=== PATIENT | female | born 1935 | race Asian ===

== ENCOUNTER 2024-11-23 08:50 | Inpatient (IN) | payer OTHER ==
[2024-11-23 09:11] VITALS: BMI 24.7
[2024-11-23 10:41] LABS: ABSOLUTE IMMATURE GRANULOCYTES 0.04 x10^3/uL (0.0-0.031); BASOPHILS # 0.06 x10^3/uL (0.01-0.08); EOSINOPHILS # 0.11 x10^3/uL (0.04-0.36); HEMATOCRIT 35.5 % (34.1-44.9); HEMOGLOBIN 11.5 g/dL (11.2-15.7); MCHC 32.4 g/dl (32.2-35.5); MEAN CELL VOLUME 94.4 fl (79.4-94.8); MEAN PLT VOLUME 11.5 fl (9.4-12.3); MONOCYTE # 0.89 x10^3/uL (0.24-0.86); PLATELET COUNT # 206 x10^3/uL (182-369); RDW 13.5 % (12.5-17.0)
[2024-11-23 10:52] LABS: INR 1.16 (0.83-1.09); PROTHROMBIN TIME (PATIENT) 12.6 SEC (9.7-13.0)
[2024-11-23 10:55] LABS: ACTIVATED PTT 30.1 SECONDS (25.2-36.5)
[2024-11-23 11:07] LABS: POTASSIUM 3.5 mmol/L (3.5-5.1)
[2024-11-23 11:09] LABS: ALBUMIN 3.1 g/dl (3.4-5.0); BLOOD UREA NITROGEN 19.9 mg/dL (7-18); CALCIUM 8.8 mg/dL (8.5-10.1)
[2024-11-23 11:14] LABS: BILIRUBIN,TOTAL 0.7 mg/dL (0.2-1); TOT PROT 6.2 g/dl (6.4-8.2)
[2024-11-23 11:41] LABS: POTASSIUM 3.5 mmol/L (3.5-5.1)
[2024-11-23 11:42] LABS: CALCIUM 8.7 mg/dL (8.5-10.1)
[2024-11-23 11:43] LABS: EPI CELLS 11 /uL (0-25.1); HYALINE CASTS 1 /uL (0-3.1); URINE APPEARANCE CLEAR; URINE BACTERIA 36 /uL (0-1359); URINE BILIRUBIN NEGATIVE (NEGATIVE); URINE COLOR DK YELLOW; URINE GLUCOSE (UA) NEGATIVE (NEGATIVE); URINE KETONE TRACE (NEGATIVE); URINE LEUK ESTERASE TRACE (NEGATIVE); URINE NITRITE NEGATIVE (NEGATIVE); URINE PROTEIN 1+ (NEGATIVE); URINE RBC 76 /uL (0-23.9); URINE UROBILINOGEN 0.2 mg/dL (0.2-1.0); URINE WBC 26 /uL (0-25.8)
[2024-11-23 11:43] LABS: BLOOD UREA NITROGEN 19.2 mg/dL (7-18)
[2024-11-23 11:48] LABS: BILIRUBIN,TOTAL 0.8 mg/dL (0.2-1); TOT PROT 5.9 g/dl (6.4-8.2)
[2024-11-23] MEDS ORDERED: CEFTRIAXONE 1 G/50 ML PREMIX 50 ML IVPB ONE (14:11)
[2024-11-23] MEDS: CEFTRIAXONE 1,000 MG in DEXTROSE 5%-WATER - 50 ML IVPB ONE (14:45)
[2024-11-24 08:45] LABS: HEMOGLOBIN 10.9 g/dL (11.2-15.7); MEAN CELL VOLUME 93.5 fl (79.4-94.8); PLATELET COUNT # 197 x10^3/uL (182-369); RDW 13.7 % (12.5-17.0)
[2024-11-24] MEDS: CEFTRIAXONE 1 G/50 ML PREMIX 50 ML IVPB SCH (10:06)
[2024-11-24] MEDS: amLODIPine BESYLATE 5 MG TABLET (FP) PO SCH (10:07)
[2024-11-24 12:01] LABS: POTASSIUM 3.3 mmol/L (3.5-5.1)
[2024-11-24 12:07] LABS: CALCIUM 8.1 mg/dL (8.5-10.1)
[2024-11-24 12:08] LABS: ALBUMIN 2.8 g/dl (3.4-5.0); BLOOD UREA NITROGEN 14.4 mg/dL (7-18)
[2024-11-24 12:11] LABS: CREATININE 0.8 mg/dL (0.55-1.3)
[2024-11-24 12:12] LABS: BILIRUBIN,TOTAL 0.5 mg/dL (0.2-1); TOT PROT 5.5 g/dl (6.4-8.2)
[2024-11-25 09:50] LABS: ABSOLUTE IMMATURE GRANULOCYTES 0.02 x10^3/uL (0.0-0.031); BASOPHILS # 0.06 x10^3/uL (0.01-0.08); EOSINOPHIL % 3.8 % (0.7-5.8); EOSINOPHILS # 0.32 x10^3/uL (0.04-0.36); HEMATOCRIT 33.4 % (34.1-44.9); HEMOGLOBIN 11.1 g/dL (11.2-15.7); MCHC 33.2 g/dl (32.2-35.5); MEAN CELL VOLUME 94.1 fl (79.4-94.8); MEAN PLT VOLUME 11.3 fl (9.4-12.3); MONOCYTE % 7.1 % (4.7-12.5); PLATELET COUNT # 213 x10^3/uL (182-369); RDW 13.4 % (12.5-17.0)
[2024-11-25 10:14] LABS: POTASSIUM 3.3 mmol/L (3.5-5.1)
[2024-11-25 10:17] VITALS: PULSE 70
[2024-11-25 10:30] LABS: CALCIUM 8.2 mg/dL (8.5-10.1); MAGNESIUM 2.2 mg/dL (1.8-2.4)
[2024-11-25 10:33] LABS: CREATININE 0.8 mg/dL (0.55-1.3)
[2024-11-25 10:34] LABS: PHOSPHOROUS 2.8 mg/dL (2.5-4.9)
[2024-11-25 18:57] VITALS: BP 138/52; RESP 20; TEMP 98.1
== END 2024-11-25 17:20 | disposition home or self-care (01) | DRG 392 ==
LOC: JER 08:50 → JERBED 14:07 → J5S 16:19 → OBSVTOIN 11-24 07:56 → J5S 11-25 09:44
PROVIDERS: ADMIT Internal Medicine; ATTEND Internal Medicine
DX: K52.9 Noninfective gastroenteritis and colitis, unspecified (principal); K62.5 Hemorrhage of anus and rectum; I10 Essential (primary) hypertension; Z85.42 Personal history of malignant neoplasm of other parts of uterus
CPT/HCPCS: 36415; 74177-TC; 76830-TC; 80048; 80053; 81003; 83605; 83735; 84100; 85025; 85027; 85610; 85730; 86140; 86850; 86900; 86901; 87086; 99285-25; G0378